=== PATIENT | female | born 1965 | race Caucasian/White ===

== ENCOUNTER 2017-01-28 22:49 | Emergency (ER) | payer BC, OTHER ==
[~2017-01-28] VITALS: Ht 180.3 cm; Wt 131.3 kg
[2017-01-28 22:52] VITALS: TEMP 36.7; Ht 180.3 cm; Wt 131.3 kg
[2017-01-28] MEDS ORDERED: SODIUM CHLORIDE 0.9% 1000ML 500 ML IV STA (23:16)
[2017-01-28] MEDS ORDERED: ONDANSETRON INJ 2 MG/ML 2 ML VIAL IV STA (23:16)
[2017-01-28 23:18] VITALS: O2SAT 98
--- NOTE | 2017-01-28 23:20 | EMERGENCY ROOM VISIT NOTE ---
History Report prepared by Caio: Dre Almonte Under the Supervision of: Dr. Omid Martinez M.D. First contact with patient: 23:07 Chief Complaint: CHEST PAIN Stated Complaint: CHEST/BACK PAIN,SOB History of Present Illness The patient is a 51 year old female who presents to the Emergency Room with complaints of intermittent left chest pain that began two weeks ago. She rates her pain an 8/10 in severity. The patient's chest pain began when she was diagnosed with pneumonia. She notes that the pain is under her left breast. After having this pain intermittently, she thought it may have been muscular in nature. Her pneumonia is no longer present, but her pain is still occurring. It is also radiating into her arm and back. She denies any abdominal pain. Her pain seems to worsen with breathing and lying down. She is feeling short of breath secondary to the pain as well. She denies any coughing, diarrhea, or urinary symptoms associated with this. She states that movement is indifferent towards the pain. She denies any past medical history. She took Ibuprofen PO 1 hour ago. Source of History: patient Onset: two weeks ago Position: chest (left) Symptom Intensity: 8/10 Timing: intermittent Modifying Factors (Worsening): rest (lying down), breathing Associated Symptoms: + SOB, + back pain, No abdominal pain, No cough, No diarrhea, No urinary symptoms Note: Her pain is radiating into her left arm. Review of Systems See HPI for pertinent positives & negatives. A total of 10 systems reviewed and were otherwise negative. Past Medical & Surgical Medical Problems: (1) No Known Active Medical Problems Family History Patient reports no known family medical history. Social History Smoking Status: Never Smoker Smokeless Tobacco Use: No Drug Use: none Marital Status: Housing Status: lives with family Occupation Status: employed Current/Historical Medications Scheduled PRN Oxycodone Ir (Roxicodone Ir), 1-2 TAB PO Q4H PRN for Pain Allergies Coded Allergies: Sulfa Antibiotics (Verified Allergy, Mild, "sulfa" -- rash, 01/29/17) Physical Exam Vital Signs Date Time Temp Pulse Resp B/P Pulse Ox O2 Delivery O2 Flow Rate FiO2 01/29/17 00:52 80 18 143/90 98 Room Air 01/28/17 23:52 85 20 162/94 97 Room Air 01/28/17 23:18 98 Room Air 01/28/17 23:00 94 01/28/17 22:52 36.7 91 20 140/89 96 Room Air Physical Exam GENERAL: Patient is in no acute distress. HEENT: No acute trauma, normocephalic atraumatic, mucous membranes moist, no nasal congestion, no scleral icterus. NECK: No stridor, no adenopathy, no meningismus, trachea is midline. LUNGS: Clear to auscultation bilaterally, no wheeze, no rhonchi, breath sounds equal. HEART: Subtle systolic murmur with a regular rate and rhythm. CHEST: Mildly tender along the left lateral and left anterior chest wall. Pain worsens to lie flat. ABDOMEN: Soft, nontender, bowel sounds positive, no hernias, no peritonitis. EXTREMITIES: No cyanosis or edema, full range of motion of all the joints without pain or difficulty, no signs for acute trauma. NEUROLOGIC: Oriented x 3, no acute motor or sensory deficits, no focal weakness. SKIN: No rash, no jaundice, no diaphoresis. Medical Decision & Procedures ER Provider Diagnostic Interpretation: X ray results and stated below per my interpretation and radiologist interpretation. Other radiology results and stated below per my review and radiologist interpretation: CHEST X-RAY: Shows no pneumothorax or pneumonia, no CHF, or mediastinal widening. Per me CTA CHEST: No evidence of PE. Lungs are clear. No pleural effusions. No adenopathy. Heart size is normal. Aorta is unremarkable. Radiologist: Naseem Curry MD Laboratory Results 01/28/17 23:01 01/28/17 23:01 Test 01/28/17 23:01 Red Blood Count 4.94 M/uL (4.2-5.4) Mean Corpuscular Volume 84.8 fL (80-100) Mean Corpuscular Hemoglobin 29.6 pg (25-34) Mean Corpuscular Hemoglobin Concent 34.8 g/dl (32-36) RDW Standard Deviation 40.1 fL (36.4-46.3) RDW Coefficient of Variation 13.0 % (11.5-14.5) Mean Platelet Volume 9.4 fL (7.4-10.4) Prothrombin Time 10.1 SECONDS (9.0-12.0) Prothromb Time International Ratio 0.9 (0.9-1.1) Activated Partial Thromboplast Time 27.9 SECONDS (21.0-31.0) Partial Thromboplastin Ratio 1.1 Anion Gap 10.0 mmol/L (3-11) Est Creatinine Clear Calc Drug Dose 90.7 ml/min Estimated GFR () 67.3 Estimated GFR (Non- 58.1 BUN/Creatinine Ratio 16.6 (10-20) Calcium Level 8.9 mg/dl (8.5-10.1) Total Bilirubin 0.2 mg/dl (0.2-1) Aspartate Amino Transf (AST/SGOT) 20 U/L (15-37) Alanine Aminotransferase (ALT/SGPT) 29 U/L (12-78) Alkaline Phosphatase 96 U/L (45-117) Troponin I < 0.015 ng/ml (0-0.045) Total Protein 7.2 gm/dl (6.4-8.2) Albumin 3.4 gm/dl (3.4-5.0) Globulin 3.8 gm/dl (2.5-4.0) Albumin/Globulin Ratio 0.9 (0.9-2) Lipase 141 U/L (73-393) Laboratory results reviewed by me. Medications Administered Medications (Trade) Dose Ordered Sig/Sohail Route Start Time Stop Time Status Last Admin Dose Admin Sodium Chloride (Nss 1000ml) 500 ml @ 999 mls/hr Q31M STAT IV 01/28/17 23:16 01/28/17 23:46 DC 01/28/17 23:34 999 MLS/HR Ondansetron HCl (Zofran Inj) 4 mg NOW STAT IV 01/28/17 23:16 01/28/17 23:17 DC 01/28/17 23:33 4 MG Morphine Sulfate (MoRPHine SULFATE INJ) 4 mg STK-MED ONCE .ROUTE 01/28/17 23:37 01/28/17 23:38 DC 01/28/17 23:34 4 MG Oxycodone HCl (Roxicodone Immediate Rel 5MG Home Pack) 1 homepack UD ONCE PO 01/29/17 01:00 01/29/17 01:01 DC 01/29/17 01:00 1 HOMEPACK ECG Indication: chest pain Rate (beats per minute): 88 Rhythm: sinus rhythm Findings: PVC, no acute ischemic change ED Course 230: The patient was evaluated in room A3. A complete history and physical exam was performed. 2316: Ordered Zofran Inj 4 mg IV, Sodium Chloride 500 ml @ 999 mls/hr IV 2330: Ordered Morphine Sulfate 4 mg IV 2337: Morphine Sulfate 4 mg .ROUTE 0100: Ordered Oxycodone HCl 1 homepack PO 0120: Reevaluated the patient. Discussed results and discharge instructions: She verbalized understanding and agreement. The patient is ready for discharge. Medical Decision Differential diagnosis includes but is not limited to pneumonia, pneumothorax, pulmonary embolism, musculoskeletal pain, myocardial infarction, aortic dissection, and pleurisy. There is no leukocytosis or concerning anemia. No significant electrolyte abnormality, kidney failure, hepatitis. EKG shows a sinus rhythm with a PVC, no acute ischemia. Cardiac enzyme testing 1 is not consistent with acute cardiac injury. Chest x-ray shows no mediastinal widening, pneumonia or pneumothorax. Chest CT shows no evidence for PE or for aortic dissection. There was no pneumonia. The patient received IV saline, IV Zofran and IV morphine. Her pain is more controlled. The cause for the pain is likely musculoskeletal. Her pain worsens with movement and I could reproduce the pain on exam. The patient was given reassurance. Heat, Motrin, rest and outpatient follow-up were suggested. [place] Drug Monitoring Program Search Results: patient reviewed within database, no issues identified Impression Primary Impression: Left sided chest pain Scribe Attestation The scribe's documentation has been prepared under my direction and personally reviewed by me in its entirety. I confirm that the note above accurately reflects all work, treatment, procedures, and medical decision making performed by me. Departure Information Dispostion Home / Self-Care Prescriptions Oxycodone Ir (Roxicodone Ir) 5 Mg Tab 1-2 TAB PO Q4H Y for Pain, #12 TAB Prov: Omid Martinez M.D. 01/29/17 Referrals Romeo Ross M.D. (PCP) Forms HOME CARE DOCUMENTATION FORM, IMPORTANT VISIT INFORMATION Patient Instructions My [facility] Additional Instructions motrin 600 mg 3x per day for 5 days heat to the sore area may help rest avoid lifting follow with anca hernandez this week use oxy ir 1 tab every 4 hours for severe pain return if worsening imaging and lab testing today was all ok
[2017-01-28 23:24] LABS: HEMATOCRIT 41.9 % (37-47); MEAN CELL VOLUME 84.8 fL (80-100); MEAN CORPUSCULAR HEMOGLOBIN 29.6 pg (25-34); MEAN CORPUSCULAR HGB CONC 34.8 g/dl (32-36); MEAN PLATELET VOLUME 9.4 fL (7.4-10.4); PLATELET COUNT 224 K/uL (130-400); RED BLOOD COUNT 4.94 M/uL (4.2-5.4); WHITE BLOOD COUNT 7.93 K/uL (4.8-10.8)
[2017-01-28] MEDS ORDERED: OPTIRAY 320 IV PRN (23:30)
[2017-01-28] MEDS ORDERED: MoRPHine SULFATE 10 MG/ML CARP/VIAL IV PRN (23:30)
[2017-01-28] MEDS ORDERED: MoRPHine SULFATE 4 MG/ML 1 ML CARP\\VIAL ONE (23:37)
[2017-01-28 23:39] LABS: INR 0.9 (0.9-1.1); PARTIAL THROMBOPLASTIN RATIO 1.1; PROTHROMBIN TIME (PATIENT) 10.1 SECONDS (9.0-12.0)
[2017-01-28 23:43] LABS: ALT/SGPT 29 U/L (12-78); AST/SGOT 20 U/L (15-37); BLOOD UREA NITROGEN 18 mg/dl (7-18); BUN/CREATININE RATIO 16.6 (10-20); CALCIUM 8.9 mg/dl (8.5-10.1); CARBON DIOXIDE 26 mmol/L (21-32); CHLORIDE 108 mmol/L (98-107); GLUCOSE 119 mg/dl (70-99); POTASSIUM 3.9 mmol/L (3.5-5.1); SODIUM 144 mmol/L (136-145)
[2017-01-28 23:48] LABS: ALB/GLOB RATIO 0.9 (0.9-2); ALKALINE PHOSPHATASE 96 U/L (45-117)
[2017-01-29 00:52] VITALS: BP 143/90; PULSE 80; O2SAT 98
[2017-01-29] MEDS ORDERED: OXYCODONE IR HOME PACK PO ONE (01:00)
[2017-01-29] MEDS ORDERED: OXYC1TAB3 PO (01:12)
--- NOTE | 2017-01-29 06:36 | DIAGNOSTIC IMAGING REPORT ---
CHEST ONE VIEW PORTABLE CLINICAL HISTORY: Atypical chest pain and shortness of breath COMPARISON STUDY: No previous studies for comparison. FINDINGS: The cardiac and mediastinal contours are normal. There is no evidence of focal pulmonary consolidation. There is no evidence of failure. No pleural effusions are visualized.[ IMPRESSION: No active disease in the chest. Electronically signed by: Tereso Leyva M.D. 01/29/2017 6:35 AM Dictated Date/Time: 01/29/2017 6:34 AM
--- NOTE | 2017-01-29 06:49 | DIAGNOSTIC IMAGING REPORT ---
CT ANGIOGRAM OF THE CHEST CLINICAL HISTORY: Atypical chest pain COMPARISON STUDY: Chest x-ray dated 01/28/2017 TECHNIQUE: Following the IV administration of 82 mL of Optiray-320, CT angiogram of the thorax was performed from the thoracic inlet to the lung bases utilizing the pulmonary embolus protocol. Images are reviewed in the axial, sagittal, and coronal planes. IV contrast was administered without complication. MIP imaging was performed. CT DOSE: 735.71 mGy.cm FINDINGS: No pathologically enlarged axillary mediastinal or hilar lymph nodes were visualized. There was no evidence of thoracic aortic dilatation. There were no pulmonary artery filling defects to indicate acute pulmonary embolism. No pleural effusions are visualized. There is respiratory motion artifact. There is no focal pulmonary consolidation. There are no pleural effusions. IMPRESSION: 1. No evidence of acute pulmonary embolism 2. No evidence of focal pulmonary consolidation Electronically signed by: Tereso Leyva M.D. 01/29/2017 6:48 AM Dictated Date/Time: 01/29/2017 6:45 AM
[2017-10-02] MEDS ORDERED: MULT-506 PO (09:05)
[2017-10-02] MEDS ORDERED: GABA1CAP5 PO (09:05)
== END 2017-01-29 01:18 | disposition home or self-care (01) ==
LOC: C.EDB 22:49 → C.EDA 01-29 01:18
DX: R07.9 Chest pain, unspecified (principal)

== ENCOUNTER → 2017-08-07 | Outpatient (CLI) | payer BC | END | disposition home or self-care (01) | LOC: C.RDSM 11:37 | PROVIDERS: ATTEND Physical Medicine & Rehabilitation Sports Medicine | DX: M25.511 Pain in right shoulder (principal) ==

== ENCOUNTER → 2017-09-14 | Outpatient (CLI) | payer BC ==
--- NOTE | 2017-09-14 08:41 | DIAGNOSTIC IMAGING REPORT ---
MRI OF THE LEFT KNEE CLINICAL HISTORY: Left knee pain. COMPARISON STUDY: Radiographs of left knee dated 09/04/2017. TECHNIQUE: MRI of the left knee was performed utilizing proton density, T1, and T2-weighted sequences in the axial, sagittal, coronal planes. IV contrast was not administered for this examination. FINDINGS: Menisci: There is a large oblique tear involving the body and posterior horn of the medial meniscus. This is best seen on sagittal image #8. The lateral meniscus appears intact. Ligaments: The anterior and posterior cruciate ligaments are intact. The medial and lateral collateral ligaments are within normal limits. Extensor mechanism: The extensor mechanism is intact. Hoffa's fat pad is normal in appearance. 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 There is associated subchondral cyst formation and mild marrow edema. Less than 50% thickening is seen involving the cartilage of the medial patellar facet. There is also nearly full-thickness cartilage thinning along the lateral femoral trochlea. There is greater than 50% fissuring of the articular cartilage along the weightbearing surface in the medial compartment. There is only minimal thinning of the articular cartilage within the lateral compartment. Minimal marrow edema and degenerative changes seen within the anterior aspect of the lateral femoral condyle. A bone island is incidentally noted in the posterior aspect of the medial femoral condyle. There is no MRI evidence of fracture. Joint effusion: There is a moderate to large joint effusion. Soft tissues: There is generalized atrophy of the regional musculature. No intramuscular edema is identified. IMPRESSION: 1. There is a large oblique tear involving the body and posterior horn of the medial meniscus. 2. The lateral meniscus, the cruciate ligaments, and the collateral ligaments appear maintained. 3. Moderate to large joint effusion. 4. Arthritic change as above, greatest at the patellofemoral articulation. Electronically signed by: Omid Rahman M.D. 09/14/2017 8:39 AM Dictated Date/Time: 09/14/2017 8:34 AM
== END | disposition home or self-care (01) ==
LOC: C.MRI 07:43
PROVIDERS: ATTEND Physical Medicine & Rehabilitation Sports Medicine
DX: S83.242A Other tear of medial meniscus, current injury, left knee, initial encounter (principal); M25.462 Effusion, left knee; X58.XXXA Exposure to other specified factors, initial encounter

== ENCOUNTER → 2017-11-02 | Day surgery (SDC) | payer BC ==
[2017-10-02 09:06] VITALS: Ht 180.3 cm; Wt 127.3 kg
[~2017-11-02] VITALS: Ht 180.3 cm; Wt 127.3 kg
[~2017-11-02] MED LIST: ASPI325T45 PO; ATROPINE SULFATE 0.1 MG/ML 5ML SYR IV PRN; CEFAZOLIN 3000MG IV PUSH 15 ML IV SCH; DEXAMETHASONE SOD INJ 4 MG/ML VIAL ONE; EpHEDrine SULFATE INJ 50 MG/ML AMP IV PRN; FENTANYL CITRATE INJ 50 MCG/1 ML 2 ML VIAL ONE; GABA1CAP5 PO; HYDR-5688 PO; HYDROmorphone INJ 1 MG/ML SYR IV PRN; LACTATED RINGER'S 1000ML 1,000 ML IV SCH; LIDOCAINE HCL 2% 2 ML VIAL (20MG/ML) ONE; LIDOCAINE/EPINEPHRINE 1% 20 ML VIAL ONE; MIDAZOLAM HCL 1 MG/ML 2ML VIAL ONE; MULT-506 PO; MoRPHine SULFATE 2 MG/ML CARP IV PRN; MoRPHine SULFATE 4 MG/ML 1 ML CARP\\VIAL IV PRN; ONDANSETRON INJ 2 MG/ML 2 ML VIAL IV PRN; ONDANSETRON INJ 2 MG/ML 2 ML VIAL ONE; OXYCODONE/ACETAMINOPHEN 5-325 TAB ONE; OXYCODONE/ACETAMINOPHEN 5-325 TAB PO PRN; PROPOFOL IV EMULSION 10 MG/ML 20 ML VIAL IV ONE; SODIUM CHLORIDE 0.9% 1000ML 1,000 ML IV SCH
--- NOTE | 2017-11-02 09:24 | History & Physical Bridge Note ---
H&P Re-Evaluation Bridge Note: I have examined the patient, reviewed the History & Physical and in the interval since the performance of the History & Physical I have noted the following changes of clinical significance: No changes noted
--- NOTE | 2017-11-02 10:34 | [facility] Post Operative Brief Note ---
Immediate Operative Summary Operative Date Nov 02, 2017. Pre-Operative Diagnosis Left Knee Medial Meniscal Tear Post-Operative Diagnosis Same, medial and lateral meniscus tears, chodromalacia Procedure(s) Performed Left Knee Arthroscopic Partial Medial and Lateral Meniscectomies, chondroplasty Surgeon Dr. Ty Call Center Recruiter Surgeon(s) Bonnie Klein PA-C, Lashawn Martin, student Estimated Blood Loss Minimal Findings as above Specimens None Anesthesia LMA Complication(s) None Disposition Recovery Room / PACU
--- NOTE | 2017-11-02 10:51 | Discharge Instructions-SurgCtr ---
Discharge Instructions Date of Service Nov 02, 2017. Visit Reason for Visit: Left Knee Medial Meniscus Tear Discharge Discharge Diagnosis / Problem: left knee medial meniscus tear Discharge Goals Goal(s): Decrease discomfort, Improve function, Increase independence Activity Recommendations Activity Limitations: per Instructions/Follow-up section Weightbearing Status: Left weightbearing (as tolerated) Anesthesia . Post Anesthesia Instructions: If you have had General Anesthesia or IV Sedation: * Do not drive today. * Resume driving when surgeon permits. * Do not make important decisions or sign legal documents today. * Call surgeon for: 1. Temperature elevations greater than 101 degrees F. 2. Uncontrollable pain. 3. Excessive bleeding. 4. Persistent nausea and vomiting. 5. Medication intolerance (nausea, vomiting or rash). * For nausea and vomiting use only clear liquids such as: tea, soda, bouillon until nausea subsides, then gradually increase diet as tolerated. * If you have any concerns or questions, call your surgeon's office. If physician is unavailable and it is an emergency, call 911 or go to the nearest emergency room. . Instructions / Follow-Up Instructions / Follow-Up The following are instructions to follow after your Arthroscopic Knee Surgery. ACTIVITY RECOMMENDATIONS: * Minimize activity until your first visit after surgery. * No excessive walking, jogging, sports or laboring. * Return to activity is individualized. Most patients are able to return to every day activities within one month. * Return to sports or intensive labor usually occurs at 2-3 months. * Driving is not permitted until at least your first postoperative visit at a minimum. Please ask your doctor when it is safe to resume driving. If you have an automatic vehicle and your left leg has been operated on, then you may begin driving as soon as you are comfortable and can drive safely. SCHOOL/WORK RECOMMENDATIONS: * You may return to sedentary work or school when you are feeling more comfortable. This is usually 3-7 days after surgery. * Expect increased discomfort with increased activity. Continue to elevate and ice the leg as much as possible. MEDICATIONS: * You will have a prescription for pain medication and an anti-inflammatory medication after surgery. * Use the pain medication for severe pain and the anti-inflammatory for less severe pain. Once the pain medication has run out, try to use the anti-inflammatory medication. If this is not effective, contact the office for assistance. * The pain medication may cause nausea, constipation and drowsiness. You should see how they affect you before driving or similar activity. * The anti-inflammatory medication may cause stomach upset and bleeding. If this occurs let your doctor know immediately . * Take a stool softener like Colace or a laxative like Senokot to prevent constipation. DIET: * Resume previous diet. SPECIAL CARE: ICE: You have the option of an ice cooler, gel packs or ice bags. * If you have an ice cooler, refer to the instructions for that device. The ice cooler may be used continuously. * If you do not have an ice cooler, you will need to use ice bags or gel packs. Do not apply ice directly to the skin. Use a thin dressing or johann shirt between the skin and ice bag. Apply ice for 20-30 minutes and repeat every 2-4 hours. This is especially important for the first 7-10 days after surgery. Once the pain improves, use ice as needed. ELEVATION: * Keep your leg elevated at or above the level of your heart as much as possible. * Expect some increased discomfort and swelling if you are standing for any length of time. * When lying down, avoid placing anything under your knee. Rather, prop your leg up by placing several pillows under your heel or calf. DRESSING: * Your dressing will be changed at your first therapy appointment approximately 4-5 days after surgery. Band-aids, tape strips or gauze may be applied. You may then change your dressing daily. * Reapply dressing followed by the Manohar wrap or Tubi-bait maker stockinet and EBIce cooling pad (if chosen). * Always wash your hands prior to touching the incision area. * Once the stitches are removed, you may leave the wound open to air or cover with an Manohar wrap or Tubi-bait maker stockinet. * If you have been given a white elastic stocking (NATHAN hose), wear as much as possible for the first 1-3 weeks depending on swelling. * Expect some bloody drainage for the first few days after surgery. * Leave the tape strips, if present, in place for 5-7 days. * Band-aids and gauze may be changed daily. CRUTCHES: * You will need to use crutches after surgery. * You may gradually progress to full weight bearing as tolerated and wean off the crutches unless otherwise advised. * Your therapist can provide assistance weaning off crutches. * Patients who have a microfracture done may need to be toe-touch weight- bearing for 4-6 weeks. BATHING: * You may shower or sponge-bathe immediately after surgery. * The dressing will need to be covered with a plastic bag or plastic wrap until the dressing is changed on the fourth or fifth day after surgery. * Once the dressing has been changed on the fourth or fifth day after surgery, you may shower and get the incision wet. * Wash with regular soap and water. * Do not bathe (submerge the incision), soak, swim or use a hot tub until the incision is completely healed over with normal skin and the doctor has given the OK to proceed. * There is no need to apply any ointments, powders or salves to your incision. * Do not apply alcohol or hydrogen peroxide directly to the incision. * Diluted peroxide (50:50 mixture with sterile saline) may be used to clean dried blood from around the incision area. BRACE: * Bracing is generally not needed after routine Arthroscopic Knee surgery. THERAPY: * You will begin therapy four or five days after surgery. * Organized therapy with the therapist is important for the first 4-6 weeks after surgery. During that time you will attend therapy 1-3 times per week. * You will also need to do daily exercises for range of motion and strength as instructed. PROBLEMS/QUESTIONS: * If you have any problems such as severe pain, numbness, tingling or high fevers or if you have any questions, please contact the office at [phone]. * It is not uncommon to have some numbness and tingling after the surgery especially if you have had a nerve block done. This should gradually improve over the first 1- 2 days. If this persists longer or worsens please contact the office. FOLLOW UP VISIT: * If not already scheduled, please call the office at to schedule a follow-up appointment for 10 days, 6 weeks and 3 months after surgery. * You have a physical therapy appointment 11/06/17 at 11:00 a.m. * You have a follow up appointment with Dr. Ty on 11/15/17 at 12:45 p.m. Diet Recommendations Home Diet: no limitations, resume previous diet Procedures Procedures Performed: Left Knee Arthroscopic Partial Medial and Lateral Meniscectomies, chondroplasty Pending Studies Studies pending at discharge: no Medical Emergencies . Who to Call and When: Medical Emergencies: If at any time you feel your situation is an emergency, please call 911 immediately. . Non-Emergent Contact Non-Emergency issues call your: Surgeon Call Non-Emergent contact if: temperature is above 101, your pain is not controlled, your pain is worsening, your pain is unusual for you, wound has increased drainage, wound has increased redness, wound has increased pain, you have any medication questions . . "Provider Documentation" section prepared by Laurel Klein. . [place] Drug Monitoring Program Search Results: patient reviewed within database, no issues identified
[2017-11-02] MEDS: FENTANYL CITRATE INJ 50 MCG/1 ML 2 ML VIAL IV PRN ×2 (10:54→11:06)
--- NOTE | 2017-11-02 10:55 | [facility] Operative Report ---
Operative Report Operative Date Nov 02, 2017. Pre-Operative Diagnosis Left Knee Medial Meniscal Tear Post-Operative Diagnosis Same, medial and lateral meniscus tears, chodromalacia Procedure(s) Performed Left Knee Arthroscopic Partial Medial and Lateral Meniscectomies, chondroplasty Surgeon Dr. 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 Medial and lateral meniscus tears. Noninflamed medial plica. Specimens None Anesthesia LMA Complication(s) None Disposition Recovery Room / PACU Indications The patient is a 52-year-old female with left knee pain consistent with torn medial meniscus and refractory to nonsurgical methods of management. Description of Procedure Informed consent was obtained. The patient was identified as do rosina Flores. She identified the operative site as the the left knee. I marked with my initials. A preoperative surgical timeout was performed. A preoperative dose of IV antibiotics was given. She was positioned supine on the OR table area no tourniquet was utilized. A lateral post was used for stressing the knee. The leg was prepped and draped in the usual sterile fashion. 1% lidocaine with epinephrine was injected in the fat pad and portal sites. DVT prophylaxis intraoperatively with foot pumps. Postoperatively with early mobility and aspirin. The exam under anesthesia revealed range of motion 3/0/135 with no effusion and intact cruciate and collateral stability. Inferolateral viewing portal superior lateral outflow portal and inferomedial working portals were established. Diagnostic arthroscopy was performed. The medial and lateral gutters were normal. Suprapatellar pouch normal. The articular surfaces of the trochlea lateral femoral condyle and tibial plateau were normal except for some slight softening lateral tibial plateau. The posterior medial and lateral compartment views were normal. The popliteal hiatus was difficult to visualize from the lateral gutter. A noninflamed medial plica was identified and excised. There was grade 2-3 chondrosis of the lateral portion of the median ridge near the lateral facet 11.5 cm. Chondroplasty performed. Fat pad and anterior synovium arthroscopically excised with shaver. Articular surfaces of the patella otherwise normal. Cruciates normal. Lateral compartment showed fraying of the inner rim of the meniscus with a flap tear. Partial-thickness discoid meniscus present. The undersurface flap was removed. Where it came from on the undersurface more anteriorly was abnormally thin and this tissue was debrided back to a stable balanced and well comport rim using basket forceps and shaver. The meniscal roots were intact. The meniscus was overly large and perhaps 10 or 15% of the volume was removed. The medial compartment showed grade 2 perhaps 3 chondrosis weightbearing area medial femoral condyle 1.51 cm. Chondroplasty performed. Tibial plateau normal. There was a complex tear of the posterior horn of the meniscus which was debrided with shaver basket forceps. Visualization was improved by perforating the MCL percutaneously with the 18-gauge needle. Roots were intact. I probed the undersurface and over surface of the meniscus and found unstable fragments except for initially where there was a fragment underneath posterior horn of the meniscus. Posterior medial compartment normal. Perhaps one-third of the meniscus was removed with the entire anterior horn was intact. The portals were closed with 4-0 nylon. A soft sterile dressing was applied. The patient was awakened from anesthesia difficulty taken to recovery room in stable condition. There were no specimens or complications. Counts are correct in the case. Blood loss was minimal. At the conclusion operations both patient's informed him of my findings. Detailed postoperative instructions were given. She can be rehabilitated according to the arthroscopic meniscectomy protocol. She can do early weightbearing. Aspirin for DVT prophylaxis to begin the evening of surgery. I attest to the content of the Intraoperative Record and any orders documented therein. Any exceptions are noted below.
--- NOTE | 2017-11-02 10:55 | [facility] Operative Report ---
Operative Report Operative Date Nov 02, 2017. Pre-Operative Diagnosis Left Knee Medial Meniscal Tear Post-Operative Diagnosis Same, medial and lateral meniscus tears, chodromalacia Procedure(s) Performed Left Knee Arthroscopic Partial Medial and Lateral Meniscectomies, chondroplasty Surgeon Dr. Ty Poured Pipe Maker Surgeon(s) Bonnie Klein PA-C, Lashawn Martin, student Estimated Blood Loss Minimal Findings left medial and lateral meniscus tear Specimens None Anesthesia LMA Complication(s) None Disposition Recovery Room / PACU Indications Patient is a 52-year-old female with complaints of left knee pain that has failed conservative treatment. She had x-rays which showed no significant bony abnormality and MRI which showed some chondromalacia of her patella and a medial meniscal tear. Surgical intervention was recommended and she agreed to proceed with surgery. Risks and complications were discussed. Informed consent was obtained. Description of Procedure Patient was taken to the operating room and placed under general anesthesia. She was given 3 g of IV Ancef for surgical prophylaxis. Timeout was performed. She was prepped and draped in routine sterile fashion. I was present during the entire case, please see Dr. Ty's operative report for further detail. Patient was awakened and transferred to the recovery room in stable condition. I attest to the content of the Intraoperative Record and any orders documented therein. Any exceptions are noted below.
--- NOTE | 2017-11-02 11:26 | Anesthesiology Progress Note ---
Anesthesia Post Op Note Date & Time Nov 02, 2017 at 11:25 Vital Signs Pain Intensity: 4 Vital Signs Past 12 Hours Date Time Temp Pulse Resp B/P (MAP) Pulse Ox O2 Delivery O2 Flow Rate FiO2 11/02/17 11:16 75 10 97 11/02/17 11:16 75 10 11/02/17 11:15 174/97 11/02/17 11:14 36.4 76 16 163/102 97 Room Air 11/02/17 11:11 80 17 11/02/17 11:11 80 17 163/102 97 11/02/17 11:06 73 13 11/02/17 11:06 73 13 179/95 100 11/02/17 11:01 77 17 100 11/02/17 11:01 77 17 11/02/17 11:00 73 15 176/98 100 11/02/17 11:00 73 15 11/02/17 10:55 76 13 172/98 100 11/02/17 10:55 76 13 11/02/17 10:51 175/101 11/02/17 10:50 78 15 100 11/02/17 10:50 78 15 11/02/17 10:46 182/106 11/02/17 10:45 89 11/02/17 10:45 36.6 84 12 182/106 100 Diffusion Mask 6 11/02/17 10:45 89 100 11/02/17 08:27 36.8 69 18 146/93 (110) 97 Room Air Notes Mental Status: alert / awake / arousable, participated in evaluation Pt Amnestic to Procedure: Yes Nausea / Vomiting: adequately controlled Pain: adequately controlled Airway Patency, RR, SpO2: stable & adequate BP & HR: stable & adequate Hydration State: stable & adequate Anesthetic Complications: no major complications apparent
[2017-11-02 11:59] VITALS: BP 142/84; PULSE 64; TEMP 36.7; O2SAT 98
== END | disposition home or self-care (01) ==
LOC: X.SURG 08:09
PROVIDERS: ATTEND Physical Medicine & Rehabilitation Sports Medicine
DX: M23.222 Derangement of posterior horn of medial meniscus due to old tear or injury, left knee (principal); M23.262 Derangement of other lateral meniscus due to old tear or injury, left knee; E66.9 Obesity, unspecified; G62.9 Polyneuropathy, unspecified; M19.90 Unspecified osteoarthritis, unspecified site; L40.9 Psoriasis, unspecified

== ENCOUNTER → 2017-11-17 | Outpatient (CLI) | payer BC | END | disposition home or self-care (01) | LOC: C.MAMM 07:36 | DX: Z12.31 Encounter for screening mammogram for malignant neoplasm of breast (principal) ==